=== PATIENT | male | born 1990 | race Two or more races ===

== ENCOUNTER 2018-04-30 15:42 | Emergency (ER) | payer MEDICAID ==
[~2018-04-30] VITALS: Ht 170.2 cm; Wt 72.6 kg
[2018-04-30 15:54] VITALS: BP 125/63
--- NOTE | 2018-04-30 16:18 | NUR ---
Patient discharged to home in stable condition. Written and verbal after care instructions given. Patient verbalizes understanding of instruction.
== END 2018-04-30 16:18 | disposition home or self-care (01) ==
LOC: ER 15:42
DX: J06.9 Acute upper respiratory infection, unspecified (principal); F10.10 Alcohol abuse, uncomplicated; Y90.9 Presence of alcohol in blood, level not specified
CPT/HCPCS: A4606; Z7610

== ENCOUNTER 2018-09-04 22:28 | Emergency (ER) | payer SELFPAY ==
[~2018-09-04] VITALS: Ht 170.2 cm; Wt 72.6 kg
--- NOTE | 2018-09-04 22:50 | NUR ---
PT BIBSELF COMPLAINING OF PELVIC PAIN X 1 WEEK, 5/10 RADIATING TO SCROTUM. PT AXO4. RESPIRATIONS EVEN AND UNLABORED. 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
--- NOTE | 2018-09-04 23:15 | NUR ---
PAPER LATCHER AT BEDSIDE. LABS DRAWN.
[2018-09-04 23:24] LABS: BASOPHILS % (AUTO) 0.4 % (0.0-2.0); EOSINOPHILS % (AUTO) 3.2 % (0.0-6.0); HEMATOCRIT 46 % (39-51); HEMOGLOBIN 15.7 g/dL (13.5-17.5); LYMPHOCYTES % (AUTO) 26.7 % (20.0-44.0); MEAN CORPUSCULAR HGB CONC 35 g/dl (31.0-36.0); MEAN CORPUSCULAR VOLUME 91 fL (80-96); MONOCYTES # (AUTO) 0.5 /CMM (0.1-1.30); NEUTROPHILS # (AUTO) 4.9 /CMM (1.8-8.9); NEUTROPHILS % (AUTO) 63.7 % (43.0-81.0); PLATELET COUNT (AUTO) 161 /CMM (150-450); RED BLOOD CELL COUNT(AUTO) 5.02 MIL/uL (4.5-6.0); WHITE BLOOD COUNT (AUTO) 7.6 K/uL (4.3-11.0)
--- NOTE | 2018-09-04 23:29 | NUR ---
PT UNABLE TO OBTAIN URINE SAMPLE.
[2018-09-04 23:42] LABS: CALCIUM, SERUM 8.8 mg/dL (8.5-10.1); POTASSIUM 4.1 mmol/L (3.5-5.1)
--- NOTE | 2018-09-04 23:45 | NUR ---
US AT BEDSIDE.
[2018-09-04 23:46] LABS: ALBUMIN 3.9 g/dL (3.4-5.0); BILIRUBIN,DIRECT 0.1 mg/dL (0.0-0.2); BILIRUBIN,TOTAL 0.3 mg/dL (0.2-1.0)
--- NOTE | 2018-09-05 00:37 | NUR ---
DPatient discharged to home in stable condition. Written and verbal after care instructions given. Patient verbalizes understanding of instruction.
[2018-09-05 00:40] VITALS: BP 122/74
== END 2018-09-05 00:42 | disposition home or self-care (01) ==
LOC: ER 22:33
DX: K40.90 Unilateral inguinal hernia, without obstruction or gangrene, not specified as recurrent (principal); R79.89 Other specified abnormal findings of blood chemistry
CPT/HCPCS: 36415; 76870-TC; 80048-TC; 80076-TC; 83690-TC; 85025-TC; 85730-TC

== ENCOUNTER 2019-05-28 12:34 | Emergency (ER) | payer SELFPAY ==
[~2019-05-28] VITALS: Ht 170.2 cm; Wt 70.8 kg
[2019-05-28 13:09] VITALS: BP 125/100
[2019-05-28] MEDS ORDERED: IPRATROPIUM NEB FS 0.5 MG/2.5 ML AMPUL.NEB NEB ONE (13:30)
[2019-05-28] MEDS ORDERED: ALBUTEROL FS 2.5 MG/3 ML VIAL.NEB NEB ONE (13:30)
[2019-05-28] MEDS ORDERED: predniSONE 50 MG TABLET PO ONE (13:30)
[2019-05-28] MEDS ORDERED: ALBUTEROL FS 2.5 MG/3 ML VIAL.NEB ONE (13:46)
[2019-05-28] MEDS ORDERED: IPRATROPIUM NEB FS 0.5 MG/2.5 ML AMPUL.NEB ONE (13:46)
[2019-05-28] MEDS ORDERED: predniSONE 20 MG TABLET ONE (13:47)
== END 2019-05-28 14:44 | disposition home or self-care (01) ==
LOC: ER 12:36
DX: J98.01 Acute bronchospasm (principal); J06.9 Acute upper respiratory infection, unspecified; F12.10 Cannabis abuse, uncomplicated; F10.10 Alcohol abuse, uncomplicated; Y90.9 Presence of alcohol in blood, level not specified
CPT/HCPCS: 71045; 94640; 99283; J7512

== ENCOUNTER 2022-02-08 23:01 | Emergency (ER) | payer SELFPAY ==
[~2022-02-08] VITALS: Ht 170.2 cm; Wt 70.3 kg
[2022-02-09 00:35] VITALS: BP 106/70
[2022-02-09] MEDS ORDERED: NA PHOS,M-B/NA PHOS,DI-BA 1 EA ENEMA RC ONE ×2 (01:18→01:30)
[2022-02-09] MEDS ORDERED: ONDANSETRON 4 MG TAB.RAPDIS ONE (01:19)
[2022-02-09] MEDS ORDERED: HYDROMORPHONE 1 MG/1 ML DISP.SYRIN ONE (01:19)
[2022-02-09] MEDS ORDERED: MAGNESIUM HYDROXIDE 30 ML UDC ONE (01:19)
[2022-02-09] MEDS ORDERED: HYDROMORPHONE 1 MG/1 ML DISP.SYRIN IM ONE (01:30)
[2022-02-09] MEDS ORDERED: MAGNESIUM HYDROXIDE 30 ML UDC PO ONE (01:30)
[2022-02-09] MEDS ORDERED: ONDANSETRON 4 MG TAB.RAPDIS SL ONE (01:30)
[2022-02-09] MEDS ORDERED: MAGNESIUM CITRATE 296 ML BOTTLE PO ONE (01:30)
== END 2022-02-09 02:42 | disposition home or self-care (01) ==
LOC: ER 23:07
DX: K59.00 Constipation, unspecified (principal); F17.210 Nicotine dependence, cigarettes, uncomplicated
CPT/HCPCS: 99283; 96372; Q0162; J1170

== ENCOUNTER 2023-11-05 01:23 | Emergency (ER) | payer SELFPAY ==
[~2023-11-05] VITALS: Ht 170.2 cm; Wt 68.9 kg
[2023-11-05 02:51] VITALS: BP 118/62; TEMP 98.6
[2023-11-05] MEDS ORDERED: ERYT3.5O9 EACHEYE (03:24)
[2023-11-05] MEDS ORDERED: TETRAcaine 5 ML BOTTLE ONE (03:29)
[2023-11-05] MEDS ORDERED: FLUORESCEIN SODIUM OPHTH 1 EA STRIP ONE (03:29)
[2023-11-05] MEDS: TETRACAINE HCL 0.5% OPHTALMIC 15 ML BOTTLE OP ONE (03:30)
[2023-11-05] MEDS: FLUORESCEIN SODIUM OPHTH 1 EA STRIP OP ONE (03:30)
[2023-11-05 03:42] VITALS: O2SAT 98
== END 2023-11-05 03:43 | disposition home or self-care (01) ==
LOC: ER 01:25
DX: H00.011 Hordeolum externum right upper eyelid (principal); H00.012 Hordeolum externum right lower eyelid; F17.200 Nicotine dependence, unspecified, uncomplicated; Z79.899 Other long term (current) drug therapy